=== PATIENT | male | born 2005 | race Caucasian/White ===

== ENCOUNTER 2025-09-20 15:25 | Emergency (ER) | payer OTHER, SELFPAY ==
--- NOTE | 2025-09-20 15:30 | ED.WOUNDLAC ---
HPI - Wound/Laceration General Chief Complaint: Wound/Laceration Stated Complaint: R HAND LACERATION Time Seen by Provider: 09/20/25 15:30 Source: patient Mode of arrival: ambulatory Limitations: no limitations History of Present Illness HPI narrative: Kali is a 19 year old male patient presenting to the clinic today with c/o right hand laceration that occurred approximately 45 minutes ago. He reports he cut the right 3rd knuckle on a razor blade accidentally. Bleeding is controlled. Last tetanus was 2014. Has full range of motion of the hand. No numbness or tingling. Related Data Home Medications ?Medication ?Instructions ?Recorded ?Confirmed ?Last Taken ?Type valacyclovir 1 gram tablet 1,000 mg PO TID 09/20/25 09/20/25 Unknown History Allergies Allergy/AdvReac Type Severity Reaction Status Date / Time Penicillins Allergy Mild hives Verified 09/20/25 15:35 Review of Systems Review of Systems: Pertinent positives per HPI. Patient denies any fever, chills, rash, headache, visual changes, dizziness, cough, runny nose, sore throat, shortness of breath, chest pain, palpitations, nausea, vomiting, diarrhea, constipation, abdominal pain, or any urinary issues. PMFSH Comments At the time of my signature, I reviewed and agree with the nursing past medical, surgical, social, and family history. There is no relevant family history pertinent to the patient complaint. Exam Narrative: General: Well-developed, well nourished, in no apparent distress Head: Normocephalic, atraumatic. Cardio: Regular rate and rhythm, s1 and s2 normal, no murmur appreciated. Resp: Clear to auscultation bilaterally, no rhonchi, rales, wheezing or rubs. Integumentary: [place], warm, and dry, 1 cm superficial laceration over the right 3rd knuckle, very minimal gaping with and flexing the finger, bleeding controlled Course Course Level of Care: Express Care Visit Vital Signs Vital signs: Vital Signs Temperature 36.8 C 09/20/25 15:40 Respiratory Rate 16 09/20/25 15:40 Blood Pressure 157/79 H 09/20/25 15:40 Pulse Oximetry 100 09/20/25 15:40 Oxygen Delivery Room Air 09/20/25 15:40 Temperature 36.8 C 09/20/25 15:40 Respiratory Rate 16 09/20/25 15:40 Blood Pressure 157/79 H 09/20/25 15:40 Pulse Oximetry 100 09/20/25 15:40 Oxygen Delivery Room Air 09/20/25 15:40 Procedures Laceration Laceration 1: Date: 09/20/25 Site: hand (right 3rd knuckle) Side (If applicable): right Size (cm): 1 Description: linear and irregular Depth: simple, single layer Local Anesthetic: lidocaine 1% Amount of anesthesia used (mL): 1.5 Pre-repair: wound explored and irrigated ====== Skin Level ====== Skin layer closed with: nylon Size (cm): 5-0 Number of sutures: 2 Technique: simple, interrupted ====== Subcutaneous Layer ====== ====== Muscle Layer ====== ====== Tendon Layer ====== Dressing: Verbal consent obtained for laceration repair. Risk and benefits explained and patient voiced understanding. Area was cleansed with antiseptic wound wash and a 27 gauge needle was then used to instill (1.5) ml of 1% lidocaine without epi into the wound edges. Area was prepped and draped using sterile technique. A 5-0 suture on a p needle was used to place (2) interrupted sutures bringing the wound edges together- well approximated. Patient tolerated procedure well. Sterile dressing applied. MDM MDM Narrative Medical decision making narrative: At the time of visit patient is resting comfortably on the exam table. Patient appears to be nontoxic. C/o right hand laceration that occurred approximately 45 minutes ago. He reports he cut the right 3rd knuckle on a razor blade accidentally. Bleeding is controlled. Last tetanus was 2014. Has full range of motion of the hand. No numbness or tingling. On exam patient has a 1 cm laceration over the right 3rd knuckle, bleedings controlled, very mild gaping with flexion of the right 3rd finger. Tetanus ordered and Laceration repair set up ordered. Procedure: Laceration repair was performed in the clinic today-2 interrupted sutures were placed bringing the wound edges well approximate. Patient tolerated fair. Medications: Tdap 0.5 mL IM given in the clinic today Plan: Patient has a superficial laceration over the right 3rd knuckle. Two interrupted sutures were placed bringing the wound edges well approximate. Patient tolerated procedure well. Sutures out in 10 days, Supportive measures were discussed with the patient and they voiced understanding discharge instructions and agrees to treatment plan. Return precautions reviewed Differential Diagnosis Differential Diagnosis: Differential diagnostic considerations for wound laceration include laceration, abscess, abrasion, avulsion of skin, skin foreign body. Discharge Plan Discharge Clinical Impression: Laceration of hand Qualifiers: Encounter type: initial encounter Foreign body presence: without foreign body Laterality: right Qualified Code(s): S61.411A - Laceration without foreign body of right hand, initial encounter Patient Disposition: Home Condition: Stable Instructions: Antibiotic Form, Laceration (ED) Additional Instructions: Tetanus shot was updated in the clinic today. Leave bandage on for 24 hours then may remove and apply band aide covering as needed. Keep wound clean and dry Wash daily with soap and water pat dry Skin sutures out in 10 days. Watch for signs and symptoms of infection- redness, streaking, swelling, purulent discharge, or increase in pain. Follow up with your PCP for suture removal or return to the Express care. Patient Language: Luxem[place]ish Prescriptions: No Action valacyclovir 1 gram tablet 1,000 mg PO TID Follow-up/Referrals: UNKNOWN,DOCTOR [Non-Staff] Time of Disposition: 16:18 Quality NIHSS Nursing Documentation ED NIHSS nursing documentation: reviewed/agree
[2025-09-20 15:40] VITALS: BP 157/79; RESP 16; TEMP 36.8; O2SAT 100
[2025-09-20] MEDS: TETANUS,DIPHTHERIA,AC PERTUSSIS ADULT (0.5 ML) BOOSTRIX IM (15:55)
[2025-09-20] MEDS: LIDOCAINE 1% LOCAL INJ 2 ML AMPUL INFILTRATE (15:56)
== END 2025-09-20 16:36 | disposition home or self-care (01) ==
PROVIDERS: Emergency Provider Nurse Practitioner Family
DX: S61.411A Laceration without foreign body of right hand, initial encounter (principal); W26.8XXA Contact with other sharp object(s), not elsewhere classified, initial encounter; Z23 Encounter for immunization
CPT/HCPCS: 12001; 90471; 90715; 99212; G0463; J2003